=== PATIENT | female | born 1995 | race Caucasian/White ===

== ENCOUNTER 2016-07-16 12:01 | Emergency (ER) | payer OTHER ==
[~2016-07-16] VITALS: Ht 165.1 cm; Wt 73.0 kg
[2016-07-16] MEDS ORDERED: SODIUM CHLORIDE 0.9% 1,000 ML IV ONE (13:14)
[2016-07-16] MEDS ORDERED: SODIUM CHLORIDE 0.9% 1,000ML IVBOLUS ONE (13:30)
[2016-07-16] MEDS ORDERED: SODIUM CHLORIDE FLUSH 10ML SYR IVF ONE (13:30)
[2016-07-16 13:53] LABS: BLOOD UREA NITROGEN 9 mg/dL (7-18)
[2016-07-16 15:11] VITALS: BP 107/61
== END 2016-07-16 15:13 | disposition home or self-care (01) ==
LOC: ED 14:54
DX: R55 Syncope and collapse (principal)
CPT/HCPCS: 36415; 80048; 81001; 82040; 84703; 85025; 87086; 96360; 99284; J7030